=== PATIENT | female | born 1990 | race Caucasian/White ===

== ENCOUNTER → 2016-10-20 | Outpatient (CLI) | payer MEDICAID ==
--- NOTE | 2016-10-20 10:48 | DX ---
AP Supine Abdomen Reason for Examination: Follow up renal calculi identified on noncontrast CT October 04, 2016. Findings: There is a 9 mm diameter calcific opacity projecting over the central aspect of the right k idney consistent with previously demonstrated renal calculus. Smaller calculi in the left kidney are not identified. There is a single calcific opacity in the pelvis on the left side consistent with a p elvic phlebolith. Impression: 9 mm diameter right renal calculus.
== END ==
LOC: FIMAGING 09:20
PROVIDERS: ATTEND Physician Assistant Medical
DX: N20.0 Calculus of kidney (principal)

== ENCOUNTER 2016-11-03 13:00 | Day surgery (SDC) | payer MEDICAID ==
--- NOTE | 2016-11-02 17:32 | GHP ---
[f rep st] PREOP HISTORY AND PHYSICAL ADMISSION DIAGNOSIS: Nephrolithiasis of the right kidney. HISTORY OF PRESENT ILLNESS: This is a 26-year-old lady who had been in the emergency room because of moderate pain from her right renal calculus. The calculus was noted to be 11 x 13 mm. 84 mm was the skin to stone depth, and she has had an elevated serum calcium at 11.3, an elevated PTH of 138, and a creatinine of 0.7. At the present time, she is admitted for attempted ureteroscopic removal of the stone. If not possible, she will have placement of a stent and undergo extracorporeal shock wave lithotripsy. PAST HISTORY: Significant for kidney stones. She has had a hymenectomy. Nexplanon implant. MEDICATIONS: Keflex in the past, Lexapro, Eden, Zofran. ALLERGIES: Sulfa. FAMILY HISTORY: Positive for colon cancer, heart disease, and prostate cancer. SOCIAL HISTORY: Moderate alcohol consumption. Nonsmoker. Not and not sexually active recently. REVIEW OF SYSTEMS: Negative for cardiac, respiratory, GI, and endocrine. PHYSICAL EXAM: VITAL SIGNS: Stable. CHEST: Clear. HEART: Regular rate and rhythm. ABDOMEN: Normal. No organomegaly, rebound, or guarding. EXTREMITIES : Lower extremities are normal. ASSESSMENT: At the present time she has the right nephrolithiasis. PLAN: Discussed attempted ureteroscopic manipulation and removal of stone. If not possible, stent placement and follow up with extracorporeal shock wave lithotripsy. Written and verbal consents have been obtained, and she appeared to be well informed for the above procedure. /[id number]/MODL MTDD
[2016-11-03] MEDS ORDERED: LR 1,000 ML IV ONE (13:01)
[2016-11-03] MEDS ORDERED: LIDOCAINE 1% 5 ML SDV ID PRN (13:01)
[2016-11-03] MEDS ORDERED: LIDOCAINE 1% 5 ML SDV ONE (13:03)
[2016-11-03] MEDS ORDERED: ceFAZolin 2 GM in D5W 100 ML IV ONE (13:30)
[2016-11-03] MEDS ORDERED: fentaNYL 100 MCG/2 ML INJ ONE ×2 (14:35→15:09)
[2016-11-03] MEDS ORDERED: LIDOCAINE 2% 5 ML SDV ONE ×2 (14:35→14:36)
[2016-11-03] MEDS ORDERED: PROPOFOL 200 MG/20 ML VIAL ONE ×2 (14:35→15:04)
[2016-11-03] MEDS ORDERED: LIDOCAINE 2% JELLY 20 ML (UROJECT) ONE (14:36)
[2016-11-03] MEDS ORDERED: DEXAMETHASONE 4 MG/ML VIAL ONE (14:36)
[2016-11-03] MEDS ORDERED: IOPAMIDOL (ISOVUE-M 300) 15 ML VIAL IV ONE (14:36)
[2016-11-03] MEDS ORDERED: ONDANSETRON 4 MG/2 ML VIAL ONE ×2 (14:36→16:35)
[2016-11-03] MEDS ORDERED: MIDAZOLAM 2 MG/2 ML VIAL ONE (14:44)
--- NOTE | 2016-11-03 17:17 | DX ---
Intraoperative Fluoroscopy History: Right ureteroscopy with laser for stone treatment Dose: Not available. Findings: 4 spot films at 15:24, 15:28, 15:41 and 16:12 demonstrate contrast in the right kidney and ureter with a filling defect in the right renal pelvis consistent with one bilobed or 2 adjacent oval ureteral stones. At the end of the procedure a right ureteral stent is seen coursing between the rig ht renal pelvis and the urinary bladder. Impression: Excellent position of the right ureteral stent after renal pelvic stone therapy.
--- NOTE | 2016-11-03 19:23 | GOP ---
[f rep st] OPERATIVE REPORT DATE OF OPERATION: 11/03/2016 SURGEON: Clinton Vegas MD ANESTHESIA: General anesthesia. ANESTHESIOLOGIST: Gerber. PREOPERATIVE DIAGNOSIS: Right renal pelvis calculus. POSTOPERATIVE DIAGNOSIS: Right renal pelvis calculus. PROCEDURE PERFORMED: A cystoscopy, retrograde ureteral pyelogram interpretation , ureteroscopy with stone lasered manipulation and extraction and placement of a stent, all under fluoroscopy. FINDINGS: DESCRIPTION OF PROCEDURE: The patient underwent general anesthesia. Prepped and draped in normal sterile fashion in the dorsal lithotomy position. After appropriate anesthesia and time-out, it should be said on the consent, it said the left side, but the H and P and the patient said it was the right side, and she was marked on the right side and I changed the consent form from left to right. Then, at that point, cystoscopy revealed the urethra, she had a bit of what appeared to be a bruise preoperatively at the posterior part of the urethral meatus, but then a scope was passed into her bladder and she had no tumor, stones, foreign bodies or diverticula. The right ureteral orifice was cannulated with a Pollack catheter and then retrograde revealed the renal pelvis calculus. I was able to pass a guidewire up under fluoroscopic control, and then the ureteral access sheath passed up to the renal pelvis and with a flexible ureteroscope and a 200 micron fiber set at a mode of 8, 10 andrews, and a total of 3014 joules were utilized laser time, and it was a 200 micron fiber. At the end of the procedure, I extracted several small fragments for stone analysis. Those fragments were very tiny, and visualized each calyx to make sure there was no significant stone burden in any those. She did have some Henri's plaques, and on 2 papilla, I lasered the Henri's plaque. At that point, a retrograde revealed continuity of the renal pelvis and ureter, and I then fluoroscopically passed a 0.45 multi-length ureteral stent over a guide wire that curled in the renal pelvis, and curled in the bladder. Bladder was emptied. Uro-Jet placed in the urethra, and exam under anesthesia revealed no pelvic pathology. She tolerated the procedure well. She will be discharged home to see me in the office in approximately 1 week for stent removal. /[id number]/MODL MTDD
[2016-11-10 17:26] LABS: SOURCE OF STONE R URETERAL
[2016-11-10 17:27] LABS: NIDUS NOT OBSERVED
== END 2016-11-03 18:05 | disposition home or self-care (01) ==
LOC: FSGY 13:00 → EDSTATUS 14:00 → FSGY 18:05
PROVIDERS: ATTEND Specialist
PROC: BT1D1ZZ Fluoroscopy of Right Kidney, Ureter and Bladder using Low Osmolar Contrast (ICD-10-PCS; principal; 2016-11-03 14:00)
PROC: 0TC38ZZ Extirpation of Matter from Right Kidney Pelvis, Via Natural or Artificial Opening Endoscopic (ICD-10-PCS; principal; 2016-11-03 14:00)
PROC: 0T767DZ Dilation of Right Ureter with Intraluminal Device, Via Natural or Artificial Opening (ICD-10-PCS; principal; 2016-11-03 14:00)
DX: N20.0 Calculus of kidney (principal)
CPT/HCPCS: 52356; 76001; C1758; C1769; C1894; 82365-90; C2625; J0690; J1100; J1200; J2250; J2405; J2704; J3010; Q9967

== ENCOUNTER 2017-01-15 21:16 | Emergency (ER) | payer MEDICAID ==
[2017-01-15 22:19] LABS: % IMMATURE GRANULYOCYTES 0.1 % (0.0-1.1); ABSOLUTE IMMATURE GRANULOCYTES 0.01 10^3/uL (0.00-0.10); ADD DIFF? NO; ADD MORPH? NO; ADD SCAN? NO; ATYPICAL LYMPHOCYTE FLAG 30 (0-99); FRAGMENT RBC FLAG 0 (0-99); HEMOGLOBIN 15.5 g/dL (12.6-16.3); LEFT SHIFT FLG 0 (0-99); LIPEMIA HEMOLYSIS FLAG 80 (0-99); MEAN CELL HEMOGLOBIN 31.1 pg (27.9-34.1); MEAN CELL VOLUME 94.2 fL (81.5-99.8); MEAN PLATELET VOLUME 10.3 fL (8.7-11.7); PLATELET CLUMPS FLAG 0 (0-99); PLATELET COUNT 348 10^3/uL (150-400); RED BLOOD CELL COUNT 4.99 10^6/uL (4.18-5.33); RED CELL DISTRIBUTION WIDTH 13.3 % (11.5-15.2)
--- NOTE | 2017-01-15 22:22 | EDPHY ---
H & P Stated Complaint: SI Source: Patient Exam Limitations: No limitations - Personal History LMP (Females 10-55): 1-7 Days Ago Current Tetanus/Diphtheria Vaccine: Yes Current Tetanus Diphtheria and Acellular Pertussis (TDAP): Yes - Medical/Surgical History Hx Asthma: Yes Hx Chronic Respiratory Disease: No Hx Diabetes: No Hx Cardiac Disease: No Hx Renal Disease: No Hx Cirrhosis: No Hx Alcoholism: No Hx HIV/AIDS: No Hx Splenectomy or Spleen Trauma: No Other PMH: anxiety, kidney stones, PNA, - Social History Smoking Status: Former smoker Alcohol Use: Other Time Seen by Provider: 01/15/17 21:54 HPI/ROS: CHIEF COMPLAINT: Depression, suicidal ideation HISTORY OF PRESENT ILLNESS: The patient presents to the ED with complaints of depression and suicidal ideation. The patient has a history of depression and has intermittently been using Lexapro. She reportedly sent some tacks to friends and family suggesting that she was considering suicide. The patient tells me she had a plan to take sleeping pills. She did not take any medications. She does not have prior history of suicide attempts. I did obtain collateral information from the patient's father who was on the phone with the patient at the time of my evaluation. He has told me about the text he received today. He is concerned about the patient's safety. The patient tells me she is despondent over lack of self worth given her dependence on her parents and minimal employment opportunity. The patient does have a history of hyperparathyroidism and scheduled to undergo parathyroidectomy next week. REVIEW OF SYSTEMS: A comprehensive 10 point review of systems is otherwise negative aside from elements mentioned in the history of present illness. (Conrad Cross) - Physical Exam Exam: General Appearance: Alert, no distress, alcohol on breath Eyes: Pupils equal and round no pallor or injection ENT, Mouth: Mucous membranes moist Respiratory: There are no retractions, lungs are clear to auscultation Cardiovascular: Regular rate and rhythm Gastrointestinal: Abdomen is soft and nontender, no masses, bowel sounds normal Neurological: A&O, normal motor function, normal sensory exam, normal cranial nerves Skin: Warm and dry, no rashes Musculoskeletal: Neck is supple nontender Extremities: symmetrical, full range of motion Psychiatric: Endorses suicidal thoughts, endorses depression (Conrad Cross) Constitutional: Initial Vital Signs Temperature (C) 37.4 C 01/15/17 21:41 Heart Rate 116 H 01/15/17 21:41 Respiratory Rate 18 01/15/17 21:41 Blood Pressure 132/100 H 01/15/17 21:41 O2 Sat (%) 96 01/15/17 21:41 O2 Delivery Mode Room Air Allergies/Adverse Reactions: cat dander Allergy (Verified 01/15/17 21:42) Sulfa (Sulfonamide Antibiotics) Allergy (Verified 01/15/17 21:42) Other-Enter Comments Home Medications: Medication Instructions Recorded Escitalopram Oxalate [Lexapro] 20 mg PO DAILY #20 tablet 07/26/16 Medical Decision Making ED Course/Re-evaluation: The patient presents to the emergency department with suicidal ideation and alcohol intoxication. The patient does have a history of depression and has intermittent compliance with using her Lexapro. The patient has been placed on a 72 hour mental health hold by myself. The patient does have a slightly elevated calcium of 11.4 which is a chronic finding for the patient secondary to her hyperparathyroidism. The patient will be turned over to Dr. Tavarez at 11:00 p.m. pending psychiatric evaluation and possible placement. (Conrad Cross) 4:00 a.m.- The patient has been evaluated by the mental health worker and deemed not acutely suicidal. Now that she is more sober, she denies any plan to hurt herself and is no longer feeling suicidal. Her father is out of town and will be returning this morning. He will meet her in the emergency room to take her home. He has expressed some concerns about her mental health. I will plan on signing the case out to Dr. Avila at 7:00 a.m.. (Mary Tavarez) Differential Diagnosis: Differential diagnosis considered includes depression, suicidal ideation, psychosis, substance abuse (Conrad Cross) - Data Points Laboratory Results: Laboratory Results 01/15/17 21:48 01/15/17 21:48 01/15/17 01/15/17 01/15/17 21:48 21:48 21:48 WBC 10.25 10^3/uL H 10^3/uL (3.80-9.50) RBC 4.99 10^6/uL 10^6/uL (4.18-5.33) Hgb 15.5 g/dL g/dL (12.6-16.3) Hct 47.0 % % (38.0-47.0) MCV 94.2 fL fL (81.5-99.8) MCH 31.1 pg pg (27.9-34.1) MCHC 33.0 g/dL g/dL (32.4-36.7) RDW 13.3 % % (11.5-15.2) Plt Count 348 10^3/uL 10^3/uL (150-400) MPV 10.3 fL fL (8.7-11.7) Neut % (Auto) 47.4 % % (39.3-74.2) Lymph % (Auto) 43.5 % % (15.0-45.0) [place] % (Auto) 5.9 % % (4.5-13.0) Eos % (Auto) 2.2 % % (0.6-7.6) Baso % (Auto) 0.9 % % (0.3-1.7) Nucleat RBC Rel Count 0.0 % % (0.0-0.2) Absolute Neuts (auto) 4.86 10^3/uL 10^3/uL (1.70-6.50) Absolute Lymphs (auto) 4.46 10^3/uL H 10^3/uL (1.00-3.00) Absolute Monos (auto) 0.60 10^3/uL 10^3/uL (0.30-0.80) Absolute Eos (auto) 0.23 10^3/uL 10^3/uL (0.03-0.40) Absolute Basos (auto) 0.09 10^3/uL 10^3/uL (0.02-0.10) Absolute Nucleated RBC 0.00 10^3/uL 10^3/uL (0-0.01) Immature Gran % 0.1 % % (0.0-1.1) Immature Gran # 0.01 10^3/uL 10^3/uL (0.00-0.10) Sodium 148 mEq/L H mEq/L (134-144) Potassium 4.8 mEq/L mEq/L (3.5-5.2) Chloride 106 mEq/L mEq/L (97-110) Carbon Dioxide 27 mEq/l mEq/l (22-31) Anion Gap 15 mEq/L mEq/L (8-16) BUN 8 mg/dL mg/dL (7-23) Creatinine 0.7 mg/dL mg/dL (0.6-1.0) Estimated GFR > 60 Glucose 100 mg/dL mg/dL (70-100) Calcium 11.4 mg/dL H mg/dL (8.5-10.4) Phosphorus 3.7 mg/dL mg/dL (2.5-4.5) Urine Opiates Screen NEGATIVE (NEGATIVE) Urine Barbiturates NEGATIVE (NEGATIVE) Ur Phencyclidine Scrn NEGATIVE (NEGATIVE) Ur Amphetamine Screen NEGATIVE (NEGATIVE) U Benzodiazepines Scrn NEGATIVE (NEGATIVE) Urine Cocaine Screen NEGATIVE (NEGATIVE) U Marijuana (THC) Screen NEGATIVE (NEGATIVE) Ethyl Alcohol 152 mg/dL H mg/dL (0-10) Medications Given: Discontinued Medications Lorazepam (Ativan) 1 mg PO EDNOW ONE Stop: 01/16/17 04:01 Last Admin: 01/16/17 04:00 Dose: 1 mg Ondansetron HCl (Zofran Odt) 4 mg PO EDNOW ONE Stop: 01/16/17 04:01 Last Admin: 01/16/17 04:00 Dose: 4 mg Departure - Departure Disposition: Home, Routine, Self-Care Clinical Impression: Severe major depression, Suicidal ideation Condition: Good Additional Instructions: Follow up with the psychiatric resources which have been provided. Return if worse. Referrals: NONE *PRIMARY CARE P,. [Primary Care Provider] - As per Instructions
[2017-01-15 22:33] LABS: ANION GAP 15 mEq/L (8-16); CALCIUM 11.4 mg/dL (8.5-10.4); CARBON DIOXIDE 27 mEq/l (22-31); CHLORIDE 106 mEq/L (97-110); CREATININE 0.7 mg/dL (0.6-1.0); ETHANOL SERUM 152 mg/dL (0-10); GLOMERULAR FILTRATION RATE > 60; GLUCOSE 100 mg/dL (70-100); POTASSIUM 4.8 mEq/L (3.5-5.2); SODIUM 148 mEq/L (134-144)
[2017-01-16] MEDS ORDERED: LORazepam 1 MG TAB ONE (03:56)
[2017-01-16] MEDS ORDERED: ONDANSETRON DISINTEGRATING 4 MG TAB ONE (03:56)
[2017-01-16] MEDS ORDERED: ONDANSETRON DISINTEGRATING 4 MG TAB PO ONE (04:00)
[2017-01-16] MEDS ORDERED: LORazepam 1 MG TAB PO ONE (04:00)
[2017-01-16 08:12] VITALS: RESP 16; O2SAT 98
[2017-01-16 12:39] VITALS: BP 130/88; PULSE 102; TEMP 99.3
== END 2017-01-16 12:38 | disposition home or self-care (01) ==
DX: F32.2 Major depressive disorder, single episode, severe without psychotic features (principal); J45.909 Unspecified asthma, uncomplicated; Z87.891 Personal history of nicotine dependence
CPT/HCPCS: 80305; G0480